=== PATIENT | female | born 1975 | race Caucasian/White ===

== ENCOUNTER 2020-08-09 15:39 | Emergency (ER) | payer MEDICAID ==
[~2020-08-09] VITALS: Ht 160 cm; Wt 108.0 kg
--- NOTE | 2020-08-09 15:49 | NUR ---
BIBA WITH CHIEF C/O BILATERAL LEG PAIN AND WEAKNESS. PER EMS PATIENT CAME FROM [place] ON THE BUS AND WAS HEADING TO A [facility]. WHEN PATIENT GOT OFF BUS SHE FELT LIKE SHE COULDN'T WALK AND WAS HAVING BILATERAL LEG PAIN. VSS EN ROUTE PER EMS. NADN, BILATERAL LOWE LEG SWELLING NOTED, 3+ NON-PITTING, CONNECTED TO VITALS MACHINE, CALL LIGHT WITHIN REACH.
--- NOTE | 2020-08-09 16:19 | NUR ---
DIRECTOR TRANSLATIONAL AT BEDSIDE.
--- NOTE | 2020-08-09 16:27 | NUR ---
NECKTIE MAKER AT BEDSIDE FOR VENOUS ULTRASOUND.
[2020-08-09 16:32] LABS: BASOPHILS % (AUTO) 1 % (0-1); EOSINOPHILS % (AUTO) 2 % (1-7); LYMPHOCYTES % (AUTO) 29 % (22-44); MD NO; MEAN CORPUSCULAR HEMOGLOBIN 30.5 pg (27.0-34.8); MONOCYTES % (AUTO) 6 % (2-9); NEUTROPHILS % (AUTO) 62 % (42-75); PLATELET COUNT 254 x10^3/uL (130-400); RED BLOOD COUNT 4.54 x10^6/uL (3.82-5.3); RED CELL DISTRIBUTION WIDTH 14.5 % (9.6-15.2)
[2020-08-09 16:38] LABS: ALBUMIN 3.7 g/dL (3.4-5.0); ANION GAP 5 mmol/L (5-15); CALCIUM 8.6 mg/dL (8.5-10.1); CHLORIDE 110 mmol/L (98-107); CREATININE 0.81 mg/dL (0.55-1.02)
[2020-08-09 18:04] VITALS: BP 133/85
--- NOTE | 2020-08-09 18:22 | NUR ---
Patient given discharge instructions and community referrals and they have confirmed that they understand the instructions. TAXI voucher provided to patient. Patient ambulatory with steady gait from ED to taxi addressed to [facility].
== END 2020-08-09 18:23 | disposition home or self-care (01) ==
LOC: ED 17:57
DX: M79.662 Pain in left lower leg (principal); M79.661 Pain in right lower leg; M79.89 Other specified soft tissue disorders
CPT/HCPCS: 36415; 80048; 82040; 85025; 93970; 99284

== ENCOUNTER 2020-11-17 18:10 | Emergency (ER) | payer MEDICAID ==
[~2020-11-17] VITALS: Ht 160 cm; Wt 105.0 kg
--- NOTE | 2020-11-17 18:10 | NUR ---
Pt report received from JUAN, pt changed into KASH lirianowildlife and game protector completed and Legal Hold started for SI, manic presentation. States she used meth 2 days ago. Came to [place] from [place] in July to get away from where her kids were taken from her trying to stop worrying about them and that she can't see them. Feels like life is useless without her kids and that she wants to just .
--- NOTE | 2020-11-17 18:15 | NUR ---
Sitter for continuous direct observation arrived at room and RN able to get blankets for pt and remove all belongings to the locker by room 1.
--- NOTE | 2020-11-17 18:55 | NUR ---
coming from room. States he will d/c legal hold as pt told him she has felt this way for 10 years and the filling machine tender told her come to ER or go to correction. Pending d/c orders.
--- NOTE | 2020-11-17 19:15 | NUR ---
Pt provided warm wet soapy washcloths and towel to clean herself up and 1 carmen donation pants as her dress was dirty with excrement. Pt requested dress be thrown away stating she was not going to stink up her stuff by putting it in her bag. Pt able to ambulate around room with steady gait. All belongings already brought to bedside from locker outside room 1. Sitter remains outside room until d/c per RN request.
[2020-11-17 19:28] VITALS: BP 144/80
== END 2020-11-17 19:30 | disposition home or self-care (01) ==
LOC: ED 19:12
DX: F32.9 Major depressive disorder, single episode, unspecified (principal); F17.200 Nicotine dependence, unspecified, uncomplicated
CPT/HCPCS: 99283; 99285

== ENCOUNTER 2021-01-12 12:46 | Emergency (ER) | payer MEDICAID ==
[~2021-01-12] VITALS: Ht 165.1 cm; Wt 109.6 kg
[2021-01-12] MEDS ORDERED: OLANZAPINE 10 MG INJ IM ONE ×2 (13:00→13:10)
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
[2021-01-12 13:28] LABS: BASOPHILS % (AUTO) 1 % (0-1); EOSINOPHILS % (AUTO) 3 % (1-7); LYMPHOCYTES % (AUTO) 33 % (22-44); MEAN CORPUSCULAR HEMOGLOBIN 30.8 pg (27.0-34.8); MEAN CORPUSCULAR HGB CONC 33.3 g/dL (32.4-35.8); MEAN PLATELET VOLUME 7.9 fL (7.4-10.4); MONOCYTES % (AUTO) 6 % (2-9); NEUTROPHILS % (AUTO) 56 % (42-75); PLATELET COUNT 203 x10^3/uL (130-400); RED BLOOD COUNT 4.15 x10^6/uL (3.82-5.3); RED CELL DISTRIBUTION WIDTH 14.5 % (9.6-15.2)
--- NOTE | 2021-01-12 13:31 | NUR ---
REPORT FROM SUDARSHAN HEWITT. PT RESTING ON GURNEY IN 2 POINT RESTRAINTS, TALKING TO SELF, DISPLAYING MANIC BEHAVIOR. GARAGE DOORS DOWN X2, SITTER OUTSIDE ROOM FOR SAFETY.
[2021-01-12 13:40] LABS: ALBUMIN 3.4 g/dL (3.4-5.0); ANION GAP 5 mmol/L (5-15); CHLORIDE 109 mmol/L (98-107); CREATININE 0.69 mg/dL (0.55-1.02); SALICYLATE LEVEL 2.5 mg/dL (2.8-20.0)
--- NOTE | 2021-01-12 13:43 | NUR ---
PT REMOVED SELF FROM 2 POINT RESTRAINTS, SKIN INTACT. SITTING ON GURNEY CALMLY AT THIS TIME.
--- NOTE | 2021-01-12 14:59 | NUR ---
BREAK RN: PT OOB AND AMBULATED TO BATHROOM, UPRIGHT STEADY GAIT. PT WAS PROVIDED WITH URINE CUP BUT DID NOT SUPPLY URINE SAMPLE. RTD TO ROOM W/O INCIDENT. 2ND MEAL TRAY ORDERED PER PT REQUEST FOR MORE FOOD. SITTER AT DOORWAY WITH PT IN VIEW. ROOM SECURE.
--- NOTE | 2021-01-12 15:30 | NUR ---
PT PROVIDED W/ MEAL TRAY.
--- NOTE | 2021-01-12 16:05 | NUR ---
PT SLEEPING ON GURNEY W/ GARAGE DOORS DOWN X2 AND SITTER OUTSIDE ROOM FOR SAFETY. RESP EVEN AND UNLABORED, CHRISTINE.
--- NOTE | 2021-01-12 17:06 | NUR ---
RESTING ON GURNEY W/ GARAGE DOORS DOWN X2 AND SITTER OUTSIDE ROOM FOR SAFETY. RESP EVEN AND UNLABORED, CHRISTINE.
--- NOTE | 2021-01-12 18:02 | NUR ---
PT PROVIDED W/ DINNER TRAY. PT REMAINS CALM AND COOPERATIVE. PROVIDED W/ ORANGE JUICE PER PT REQUEST. INTERACTING APPROPRIATELY TOWARDS STAFF.
--- NOTE | 2021-01-12 19:16 | NUR ---
Report from Estrella HEWITT
--- NOTE | 2021-01-12 20:14 | NUR ---
TRANSFER PACKET FAXED TO [facility] AND [facility]
--- NOTE | 2021-01-12 20:31 | NUR ---
REPORT TO GIANCARLO HEWITT AT [facility]
[2021-01-12 20:43] VITALS: BP 132/98
== END 2021-01-12 21:59 ==
LOC: ED 13:01 → EDIP 18:16 → UNDOADMOB 18:16 → ED 21:53
DX: F23 Brief psychotic disorder (principal); R45.850 Homicidal ideations
CPT/HCPCS: 36415; 80048; 80299; 80320; 80329; 82040; 84703; 85025; 96372; 99285; G0480